=== PATIENT | male | born 1990 | race Caucasian/White ===

== ENCOUNTER 2023-05-28 02:20 | Emergency (ER) | payer MEDICAID ==
[~2023-05-28] VITALS: Ht 170.2 cm; Wt 61.2 kg
[2023-05-28 02:20] VITALS: BP 166/133; PULSE 130; RESP 20; TEMP 98.3; O2SAT 99
== END 2023-05-28 03:36 ==
LOC: MED 02:20
DX: T44.90 Poisoning by, adverse effect of and underdosing of unspecified drugs primarily affecting the autonomic nervous system (principal); Z02.89 Encounter for other administrative examinations; I10 Essential (primary) hypertension; R00.0 Tachycardia, unspecified; F14.90 Cocaine use, unspecified, uncomplicated; Y92.89 Other specified places as the place of occurrence of the external cause
CPT/HCPCS: 93005; 99283